=== PATIENT | female | born 1950 | race Caucasian/White ===

== ENCOUNTER 2018-05-31 19:34 | Emergency (ER) | payer MEDICARE, BC ==
[2018-05-31] MEDS ORDERED: methylPREDNISolone Sodium Succinate 125 MG/2 ML SDV IM ONE (20:14)
[2018-05-31] MEDS ORDERED: Famotidine 20 MG Tab PO ONE (20:15)
--- NOTE | 2018-05-31 20:22 | EDM.PDOC ---
ED HPI GENERAL MEDICAL PROBLEM - General Chief Complaint: Allergic Reaction Stated Complaint: POSS ALLERGIC REACTION Time Seen by Provider: 05/31/18 20:20 Source of Information: Reports: Patient History Limitations: Reports: No Limitations - History of Present Illness INITIAL COMMENTS - FREE TEXT/NARRATIVE: Presents reporting hives. States that last evening she took one Aleve for some arthritis pain. About an hour later she developed a scratchy throat and subsequently a rash the rash continued throughout the day today. The rash has been quite itchy and has worsened despite taking 25 mg of Benadryl every 4 hours. She had some chocolate with Almonds and some tomatoes for supper last night but she has had those before. She has also had Aleve before. She did mention she has been under a lot of stress lately. No upper respiratory symptoms , wheezing, mouth, lips or oral swelling. No new clothing, underwear, toiletries, laundry products, pets or unusual foods. generalized Pain Score (Numeric/FACES): 4 - Related Data Allergies Allergy/AdvReac Type Severity Reaction Status Date / Time codeine Allergy Difficulty Verified 05/31/18 20:06 Swallowing Sulfa (Sulfonamide Allergy Difficulty Verified 05/31/18 20:06 Antibiotics) Swallowing Home Meds: Home Meds predniSONE [Prednisone] 2 tab PO DAILY #8 tablet 05/31/18 [Rx] Past Medical History - Past Health History Medical/Surgical History: Denies Medical/Surgical History - Infectious Disease History Infectious Disease History: Reports: Chicken Pox, Measles, Mumps, Rubella Social & Family History - Tobacco Use Smoking Status *Q: Never Smoker - Caffeine Use Caffeine Use: Reports: Coffee - Recreational Drug Use Recreational Drug Use: No ED ROS ALLERGIC REACTION - Review of Systems Review Of Systems: ROS reveals no pertinent complaints other than HPI. ED EXAM GENERAL NO PERIP PULSE - Physical Exam Exam: See Below Exam Limited By: No Limitations General Appearance: Alert, Mild Distress (due to pruritis) Ears: Normal External Exam Nose: Normal Inspection Throat/Mouth: Normal Inspection, Normal Oropharynx, Other (no mouth, lips, tongue or oral swelling) Head: Atraumatic, Normocephalic Neck: Normal Inspection. No: Lymphadenopathy (L), Lymphadenopathy (R) Respiratory/Chest: No Respiratory Distress, Lungs Clear, Normal Breath Sounds, No Accessory Muscle Use Cardiovascular: Normal Peripheral Pulses, Regular Rate, Rhythm, No Murmur GI/Abdominal: Soft Back Exam: Normal Inspection Extremities: Normal Inspection Neurological: Alert, Oriented Psychiatric: Normal Affect, Normal Mood Skin Exam: Warm, Dry, Intact, Other (raised erythematous blotchy rash over entire trunk, extremities and palms ) Course - Vital Signs Last Recorded V/S: Last Vital Signs Temp 36.1 C 05/31/18 20:02 Pulse 91 05/31/18 20:02 Resp 16 05/31/18 20:02 BP 171/85 H 05/31/18 20:02 Pulse Ox 96 05/31/18 20:02 - Orders/Labs/Meds Meds: Medications Discontinued Medications Generic Name Dose Route Start Last Admin Trade Name Freq PRN Reason Stop Dose Admin Famotidine 20 mg 05/31/18 20:15 05/31/18 20:25 Pepcid PO 05/31/18 20:16 20 mg ONETIME ONE Administration Methylprednisolone Sodium Succinate 125 mg 05/31/18 20:14 05/31/18 20:24 Solu-Medrol IM 05/31/18 20:15 125 mg ONETIME ONE Administration Departure - Departure Time of Disposition: 20:55 Disposition: Home, Self-Care 01 Clinical Impression: Hives - Discharge Information *PRESCRIPTION DRUG MONITORING PROGRAM REVIEWED*: Not Applicable *COPY OF PRESCRIPTION DRUG MONITORING REPORT IN PATIENT JANY: Not Applicable Prescriptions: predniSONE [Prednisone] 2 tab PO DAILY #8 tablet Referrals: PCP,None [Primary Care Provider] - Doni Nathan,[facility] [Ordering Only Provider] - [facility] [Outside] Additional Instructions: 1. Take your steroids daily--start in am 2. May take Benadryl 25-50 every 4-6 hours and Zyrtec twice daily 3. May take Pepcid once daily 4. Return promptly for mouth or facial swelling, wheezing or breathing problems.
== END 2018-05-31 21:00 | disposition home or self-care (01) ==
LOC: MW.ED 19:34
DX: L50.9 Urticaria, unspecified (principal); L29.9 Pruritus, unspecified; Z79.899 Other long term (current) drug therapy; Z88.5 Allergy status to narcotic agent; Z88.2 Allergy status to sulfonamides
CPT/HCPCS: 96372; 99283; A9270; J2930